=== PATIENT | female | born 1955 | race Caucasian/White ===

== ENCOUNTER 2020-12-21 21:24 | Emergency (ER) | payer OTHER ==
[2020-12-22] MEDS ORDERED: HYDROCODON-ACE1 EAC4 PO (00:32)
== END 2020-12-22 00:40 | disposition home or self-care (01) ==
LOC: ER1 21:24
DX: S49.91XA Unspecified injury of right shoulder and upper arm, initial encounter (principal); S42.251A Displaced fracture of greater tuberosity of right humerus, initial encounter for closed fracture; W01.0XXA Fall on same level from slipping, tripping and stumbling without subsequent striking against object, initial encounter; Y92.009 Unspecified place in unspecified non-institutional (private) residence as the place of occurrence of the external cause
CPT/HCPCS: 73030; 73060; 73200; 96372; 99284; J2270